=== PATIENT | male | born 1975 | race Caucasian/White ===

== ENCOUNTER 2018-09-23 07:06 | Emergency (ER) | payer MEDICAID, SELFPAY ==
[2018-09-23 07:07] VITALS: BP 115/80; PULSE 70; RESP 17; TEMP 36.7; O2SAT 98; BMI 20.9
--- NOTE | 2018-09-23 07:13 | EKG12_ITS ---
Test Reason : CHEST OTHER Blood Pressure : / mmHG Vent. Rate : 065 BPM Atrial Rate : 065 BPM P-R Int : 160 ms QRS Dur : 102 ms QT Int : 386 ms P-R-T Axes : 083 075 071 degrees QTc Int : 401 ms Normal sinus rhythm Possible Left atrial enlargement Incomplete right bundle branch block Cannot rule out Anterior infarct , age undetermined Abnormal ECG Confirmed by ALEX HARRIS ([id number]), editor at large EMILIANA VALDOVINOS ([id number]) on 09/27/2018 4:54:55 PM Referred By: KYUNG Confirmed By:ALEX HARRIS
--- NOTE | 2018-09-23 07:14 | ED.DCSUM_ITS ---
- ER Visit Summary Date of Service: 09/23/18 Chief Complaint: Left posterior rib pain History of Present Illness: The patient is a 43 M presents to the emergency department left posterior rib pain. Patient was in his normal state of health. He states he woke this morning and had a lot of pain in the back of his left ribs. He states it hurts to cough and breathe. He has had history of pleurisy and states that this feels the same. He denies any history of pulmonary embolus. He said no recent travel. He said no leg swelling. The patient takes no daily medications. He states for the past few days, he has had a scant cough. He denies fevers or chills. He denies any productive sputum. Physical Examination: Vital signs reviewed General: Well-nourished, well-developed Head: Normocephalic, atraumatic Eyes: Pupils equal and reactive, extraocular muscles intact Neck, supple, no lymphadenopathy Heart: Regular rate and rhythm Respiratory: No distress, clear bilaterally Abdomen: Soft, nontender, nondistended, no peritoneal signs Back: Nontender Extremities: Nontender, no edema, no cords Skin: Normal color no rash Neuro: Alert and oriented, no focal or lateralizing deficits Test Results: [] Emergency Department Course and Treatment: The patient presents with left-sided posterior rib pain. He states it hurts when he takes a deep breath. He has not hypoxic. Is not tachycardic. EKG was obtained which showed sinus rhythm without acute ischemic change. Chest x-ray was also unremarkable. Screening labs including d-dimer were negative. Given the patient's history of pleurisy and symptoms are consistent, I do feel that this is likely the cause. I am going to treat the patient with anti-inflammatories and a short burst of prednisone. He is comfortable this plan of care and will be discharged home. Treatment Plan: [] Disposition: Discharge Impression: Pleurisy This note was generated with [employer] dictation software. It may contain incorrect words, spelling, and punctuation that were not noted in review of the chart prior to signing ED Disposition - Plan for ED Patient: Instructions: ED Chest Pain Pleurisy Prescriptions: Prednisone [Deltasone] 40 mg PO DAILY #10 tab Naproxen [Naprosyn] 500 mg PO BID #14 tab Referrals: Care Physician,No Primary [Primary Care Provider] -
--- NOTE | 2018-09-23 07:25 | RAD_ITS ---
STUDY: X-RAY CHEST REASON FOR EXAM: Male, 43 years old. Left-sided chest pain TECHNIQUE: 2 views COMPARISON: None. FINDINGS: The lungs are clear and expanded. There is no demonstrated pleural abnormality. Normal size heart. Normal mediastinum and erika. Normal visualized pulmonary arteries. Normal visualized aortic arch and descending thoracic aorta. Normal visualized thoracic spine. Normal visualized ribs, clavicles, and shoulders. There is no demonstrated abnormality of the visualized soft tissue structures of the upper abdomen. RAD/Chest PA and Lateral IMPRESSION: Normal x-ray examination of the chest. No acute findings in the lungs Electronically Signed: Fredis Leach MD at 7:46 EDT Tel , Service support ,
[2018-09-23] MEDS: Ketorolac 30 MG/ML Syringe IV (07:27)
[2018-09-23 07:30] LABS: Absolute Lymphocyte Count 1.44 X10^3/ul (0.83-4.51); Absolute Neutrophil Count 2.9 X10^3/uL (2.0-7.7); Basophil# 0.05 X10^3/uL; Eosinophil# 0.09 X10^3/uL; Eosinophils% 1.8 % (0-5); Hematocrit 42.4 % (40-54); Hemoglobin 14.1 g/dl (13.0-16.5); Lymphocyte # 1.44 X10^3/ul (4.0); Mean Corp Hgb Conc 33.3 g/gl (32-36); Mean Corpuscular Hgb 28.5 pg (27.0-32.0); Mean Corpuscular Volume 85.8 fL (80-94); Mean Platelet Vol. 9.9 fl (6.2-12.0); Monocyte# 0.45 X10^3/uL; Monocyte% 9.1 % (0-10); Neutrophil # 2.93 X10^3/uL (2.7-7.7); Neutrophil % 58.9 % (47-70); Platelet Count 195 K/mm3 (150-450); RBC Distribution Width CV 13.1 % (11.6-14.6); RBC Distribution Width SD 40.9 fl (35.1-43.9); Red Blood Count 4.94 M/mm3 (4.6-6.2)
[2018-09-23 07:31] LABS: POSITIVE COUNT NO; POSITIVE DIFFERENTIAL NO; POSITIVE MORPHOLOGY NO
[2018-09-23 07:42] LABS: Anion Gap 5 (5-15); BUN 19 mg/dL (7-18); BUN/Creat Ratio 22.5 RATIO (10-20); Calcium,Total 8.7 mg/dL (8.5-10.1); Chloride 108 mmol/L (98-107); Creatinine, Serum 0.85 mg/dL (0.70-1.30); EST Glomerular Filtration Rate 105 mL/min (>60); Est Glom Filt Rate - Afr Amer 127 mL/min (>60); Estimated Creatinine Clearance 94.48 ml/min; Glucose 90 mg/dL (74-106); Sodium Level 140 mmol/L (136-145)
[2018-09-23 08:12] LABS: D-Dimer Quantitative (DVT/PE) < 0.27 FEU/ug/m (0.27-0.49)
[2018-09-23 08:32] VITALS: BP 118/62; PULSE 59; RESP 16; O2SAT 98
== END 2018-09-23 08:45 | disposition home or self-care (01) ==
PROVIDERS: Emergency Provider Emergency Medicine
DX: R09.1 Pleurisy (principal); Z72.0 Tobacco use
CPT/HCPCS: 71046; 80048; 85025; 85379; 93005; 96361; 96374; 99284; J7040; A4216

== ENCOUNTER 2020-09-25 15:15 | Emergency (ER) | payer SELFPAY ==
[2020-09-25 15:15] VITALS: BP 113/78; PULSE 77; PULSE 83; RESP 16; TEMP 36.4; O2SAT 97; BMI 20.5
--- NOTE | 2020-09-25 15:25 | RAD_ITS ---
STUDY: X-RAY - LEFT WRIST REASON FOR EXAM: Male, 45 years old. pain in wrist TECHNIQUE: 3 view(s) of the wrist were obtained. COMPARISON: None. FINDINGS: Normal visualized distal radius and ulna. Normal radiocarpal articulation. Normal distal radioulnar articulation. Normal carpal bones. Normal carpal articulations. Normal carpometacarpal articulation of the thumb. Normal second through fifth carpometacarpal articulations. Normal visualized metacarpal bones. The soft tissue structures are unremarkable. RAD/Wrist min 3 Views IMPRESSION: Normal x-ray examination of the wrist. Electronically Signed: Kristofer Fernandes MD at 16:22 EDT Tel , Service support ,
--- NOTE | 2020-09-25 15:27 | ED.VIS.GEN ---
History of Present Illness Chief Complaint: Upper Extremity Injury Informant: Patient Narrative: 45-year-old male with no significant past medical history presents with concern for left hand and wrist pain. 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 States that last night he was at work when he felt like his hand and wrist were not functioning appropriately. States that he bent his wrist back. States that now he cannot bend his fingers without pain. Has pain particularly along the left side of his hand into his wrist. Denies any crush injury. Denies any numbness or tingling. Past Medical History - Allergies and Home Meds Allergies/Adverse Reactions: Allergies Penicillins Allergy (Verified 09/23/18 07:07) Anaphylaxis Primary Care Physician: Care Physician,No Primary [Primary Care Provider] - Prior records reviewed: Yes Past Medical History: None Lives: Alone Smoking Status: Current every day smoker Alcohol: None Drugs: Marijuana Review of Systems General: Denies: Chills, Fever, Sweats Eyes: Denies: Visual changes - bilaterally, Diplopia ENT: Denies: Rhinorrhea, Sore throat Cardiovascular: Denies: Chest pain, Palpitations Respiratory: Denies: Dyspnea, Cough, Dyspnea on exertion Gastrointestinal: Denies: Abdominal pain, Nausea, Vomiting, Diarrhea, Melena, Hematochezia Genitourinary: Denies: Dysuria, Hematuria, Frequency Musculoskeletal: Reports: Myalgias, Arthralgias. Denies: Back pain, Extremity Pain Skin: Denies: Rash, Wounds Neurological: Denies: Headache, Weakness, Numbness Physical Exam Vital Signs/Narrative: Vital Signs Temp Pulse Resp BP Pulse Ox 09/25/20 15:15 97.5 F L 83 16 113/78 97 Inital Vital Signs reviewed: Yes General: Well nourished, Well developed, No Acute Distress Head: Normocephalic, Atraumatic Eyes: Perrl, EOMI ENT: Moist mucous membranes, No rhinorrhea Neck: Supple, Nontender Cardiovascular: Regular rate, Regular rhythm, No murmurs Respiratory: No distress, CTA bilaterally, Chest nontender Abdomen: Soft, Nontender, Nondistended, Normal bowel sounds Back: Nontender, Normal Inspection Extremities: No edema, - - Tenderness to palpation in the palm of the left hand. Particularly along the ulnar aspect. Patient also has pain with range of motion of the left wrist. No overlying skin changes. No significant edema. Sensation intact. Skin: Normal color, No rash Neurological: Alert, Oriented x3, Cranial nerves II-XII grossly intact, Normal Strength, Normal Sensation Psychological: Normal affect, Normal Mood Diagnostic/Tx/Re-eval Clinical Impression(s) from Imaging Studies Wrist X-Ray 09/25/20 15:25 IMPRESSION: Normal x-ray examination of the wrist. Electronically Signed: Kristofer Fernandes MD at 16:22 EDT Tel , Service support , Hand X-Ray 09/25/20 15:45 IMPRESSION: Normal x-ray examination of the hand. Electronically Signed: Kristofer Fernandes MD at 16:22 EDT Tel , Service support , - Medical Decision Making Appears well and nontoxic. Full range of motion of the left wrist. No focal deficit. No overlying skin changes. X-ray negative. Patient given intramuscular Toradol. Patient given Naprosyn and wrist splint. Given orthopedic follow-up. Asked return for new or worsening symptoms. Patient agreeable and stable at time of discharge. Impression: 1. Left wrist pain 2. Left hand pain ED Disposition - Plan for ED Patient: Disposition: Home or Assisted Living Instructions: ED Wrist Sprain Prescriptions: Naproxen 500 mg PO BID #10 tablet Prescription Printed Referrals: Guerrero Zaidi DO [STAFF PHYSICIAN] - 3-5 Days
--- NOTE | 2020-09-25 15:45 | RAD_ITS ---
STUDY: X-RAY - LEFT HAND REASON FOR EXAM: Male, 45 years old. pain in hand TECHNIQUE: 3 view(s) of the hand. COMPARISON: None. FINDINGS: Normal radiocarpal articulation. Normal distal radioulnar joint. Normal visualized carpal bones. Normal carpal articulations Normal carpometacarpal articulation of the thumb. Normal second through fifth carpometacarpal joints. Normal metacarpi. Normal metacarpophalangeal joint of the thumb. Normal interphalangeal joint of the thumb. Normal proximal and distal phalanges of the thumb. Normal metacarpophalangeal joints of the second through fifth fingers. Normal proximal and distal interphalangeal joints of the second through fifth fingers. Normal phalanges of the second through fifth fingers. The soft tissue structures are unremarkable. RAD/Hand Min 3 Views IMPRESSION: Normal x-ray examination of the hand. Electronically Signed: Kristofer Fernandes MD at 16:22 EDT Tel , Service support ,
== END 2020-09-25 17:06 | disposition home or self-care (01) ==
PROVIDERS: Emergency Provider Emergency Medicine
DX: M25.532 Pain in left wrist (principal); M79.642 Pain in left hand; F17.200 Nicotine dependence, unspecified, uncomplicated; Z88.0 Allergy status to penicillin
CPT/HCPCS: 73110; 73130; 96372; 99282